=== PATIENT | male | born 1995 | race Caucasian/White ===

== ENCOUNTER 2022-12-12 00:31 | Emergency (ER) | payer MEDICAID, OTHER ==
[~2022-12-12] VITALS: Ht 175.3 cm; Wt 106.1 kg
[2022-12-12] MEDS ORDERED: IBUPROFEN 400 MG TABLET PO ONE (01:00)
[2022-12-12] MEDS ORDERED: IBUPROFEN 400 MG TABLET ONE (01:03)
[2022-12-12 02:39] VITALS: BP 149/90; TEMP 98.1; O2SAT 98
== END 2022-12-12 02:35 | disposition home or self-care (01) ==
LOC: ER 00:39
DX: M53.3 Sacrococcygeal disorders, not elsewhere classified (principal); V89.2XXA Person injured in unspecified motor-vehicle accident, traffic, initial encounter; Y93.89 Activity, other specified; Y92.89 Other specified places as the place of occurrence of the external cause; Y99.8 Other external cause status
CPT/HCPCS: 72192-TC